=== PATIENT | female | born 1980 | race Caucasian/White ===

== ENCOUNTER 2016-10-28 08:17 | Emergency (ER) | payer SELFPAY | END 2016-10-28 09:34 | disposition home or self-care (01) | LOC: NAV ERS 08:17 | DX: K08.89 Other specified disorders of teeth and supporting structures (principal); F31.9 Bipolar disorder, unspecified; F41.9 Anxiety disorder, unspecified; F17.210 Nicotine dependence, cigarettes, uncomplicated; Z79.2 Long term (current) use of antibiotics; Z79.899 Other long term (current) drug therapy | CPT/HCPCS: 96372; J2270 ==

== ENCOUNTER 2017-03-01 20:30 | Emergency (ER) | payer SELFPAY | END 2017-03-01 21:26 | disposition home or self-care (01) | LOC: NAV ERS 20:30 | DX: J06.9 Acute upper respiratory infection, unspecified (principal); F41.9 Anxiety disorder, unspecified; F31.9 Bipolar disorder, unspecified; F17.210 Nicotine dependence, cigarettes, uncomplicated | CPT/HCPCS: 99283 ==

== ENCOUNTER 2017-03-02 08:37 | Emergency (ER) | payer SELFPAY ==
[2017-03-02] MEDS ORDERED: Ibuprofen 800 MG TAB ONE (09:00)
== END 2017-03-02 08:59 | disposition home or self-care (01) ==
LOC: NAV ERS 08:37
DX: S39.012A Strain of muscle, fascia and tendon of lower back, initial encounter (principal); I34.1 Nonrheumatic mitral (valve) prolapse; N80.9 Endometriosis, unspecified; F41.9 Anxiety disorder, unspecified; F31.9 Bipolar disorder, unspecified; F17.210 Nicotine dependence, cigarettes, uncomplicated; X58.XXXA Exposure to other specified factors, initial encounter
CPT/HCPCS: 99406

== ENCOUNTER 2017-03-16 18:57 | Emergency (ER) | payer SELFPAY ==
[2017-03-16] MEDS ORDERED: predniSONE 10 MG TAB ONE (19:48)
[2017-03-16] MEDS ORDERED: predniSONE 20 MG TAB ONE (19:48)
[2017-03-16 20:07] LABS: Pregnancy Test - Urine (BHCG) Negative (Negative); Pregu Control Background? CLEAR/WHITE (CLR/WHITE); Pregu Control Bar Appear? YES (CONTROL BAR); Specific Gravity 1.032 (1.002-1.036)
[2017-03-16] MEDS ORDERED: Azithromycin 250 MG TAB ONE (20:27)
--- NOTE | 2017-03-16 21:38 | RAD ---
EXAM: ONE VIEW CHEST 03/16/17 HISTORY: Cough. COMPARISON: 01/28/15. FINDINGS: Normal cardiac silhouette. Pulmonary vessels and hilum are normal. Costophrenic angles are clear. No consolidation or mass. No pneumothorax or osseous abnormalities. IMPRESSION: No acute cardiopulmonary process. POS: [facility]
== END 2017-03-16 20:31 | disposition home or self-care (01) ==
LOC: NAV ERS 18:57
DX: J40 Bronchitis, not specified as acute or chronic (principal); F41.9 Anxiety disorder, unspecified; F31.9 Bipolar disorder, unspecified; F17.210 Nicotine dependence, cigarettes, uncomplicated
CPT/HCPCS: 71046; 81025; 94640; J7506; J7512; J7620

== ENCOUNTER 2017-09-28 21:44 | Emergency (ER) | payer SELFPAY ==
[2017-09-28] MEDS ORDERED: Sodium Chloride 0.9% 1,000 ML ONE (22:06)
[2017-09-28] MEDS ORDERED: Acetaminophen 500 MG TAB ONE (22:06)
[2017-09-28] MEDS ORDERED: Ondansetron ODT 4 MG TAB ONE (22:06)
[2017-09-28] MEDS ORDERED: Ondansetron HCl/PF 4 MG/2 ML Vial ONE (22:08)
[2017-09-28 22:24] LABS: #Basophils 0.2 thou/uL (0.0-0.2); #Eosinphils 0.3 thou/uL (0.0-0.7); #Lymphocytes 5.2 thou/uL (1.20-3.40); #Monocytes 0.9 thou/uL (0.11-0.59); #Neutrophils 11.2 thou/uL (1.40-6.50); %Basophils 0.9 % (0.0-1.0); %Eosinophils 1.5 % (0.0-10.0); %Lymphocytes 29.3 % (21.0-51.0); %Monocytes 5.2 % (0.0-10.0); Hemoglobin 13.9 g/dL (12.0-16.0); Mean Corpuscular HGB CONC 32.4 g/dL (32.0-36.0); Mean Corpuscular Hemoglobin 28.7 pg (27.0-31.0); Mean Corpuscular Volume 88.6 fL (78.0-98.0); Mean Platelet Volume 6.8 fL (7.4-10.4); Platelet Count 397 thou/uL (130-400); RBC Distribution Width 11.3 % (11.5-14.5); Red Blood Cell (RBC) Count 4.82 mill/uL (4.20-5.40); White Blood Cell (WBC) Count 17.7 thou/uL (4.8-10.8)
[2017-09-28 22:44] LABS: ALT (SGPT) 22 U/L (8-55); AST (SGOT) 15 U/L (5-34); Albumin 4.2 g/dL (3.5-5.0); Alkaline Phosphatase 60 U/L (40-150); Anion Gap 16 mmol/L (10-20); BUN (Urea Nitrogen) 14 mg/dL (7.0-18.7); Bilirubin, Total 0.1 mg/dL (0.2-1.2); Calc. Creatinine Clearance 0 mL/min (70-130); Calcium 9.4 mg/dL (7.8-10.44); Carbon Dioxide 22 mmol/L (22-29); Chloride 105 mmol/L (98-107); Estimated GFR-MDRD Greater than 90; Globulin 2.8 g/dL (2.4-3.5); Glucose 113 mg/dL (70-105); Sodium 139 mmol/L (136-145)
[2017-09-28] MEDS ORDERED: Fentanyl 100 MCG/2 ML VIAL ONE (22:53)
[2017-09-28 22:54] LABS: Bilirubin Negative (Negative); Blood, Urine Small (Negative); Clarity Clear (Clear); Glucose, Urine (Dipstick) Negative (Negative); Leukocyte Trace (Negative); Nitrite Negative (Negative); Protein, Urine (Dipstick) Negative (Neg-Trace); Urobilinogen 0.2 mg/dL (0.2-1.0); pH, Urine 6.5 (5.0-9.0)
[2017-09-28 22:56] LABS: Pregnancy Test - Urine (BHCG) Negative (Negative)
[2017-09-28 22:58] LABS: Pregu Control Background? CLEAR/WHITE (CLR/WHITE); Pregu Control Bar Appear? YES (CONTROL BAR)
[2017-09-28 23:02] LABS: Bacteria/HPF Rare-Few HPF (None Seen); RBC/HPF 0-3 HPF (0-3); Squamous Epithelial 0-3 HPF (0-3)
[2017-09-28 23:03] LABS: Amphetamine Not Detected (NotDetected); Barbiturates Screen Not Detected (NotDetected); Benzodiazepine Screen Not Detected (NotDetected); Cocaine Metabolite Screen Not Detected (NotDetected); Medtox Control Line Valid? VALID (VALID); Methadone Not Detected (NotDetected); Methamphetamine Not Detected (NotDetected); Opiate Screen Not Detected (NotDetected); Oxycodone Screen Not Detected (NotDetected); Phencyclidine (PCP) Not Detected (NotDetected); THC/Cannabinoid Screen Not Detected (NotDetected); Tricyclic Screen Not Detected (NotDetected)
--- NOTE | 2017-09-28 23:42 | CT ---
NONCONTRAST CT ABDOMEN AND PELVIS: 09/28/17 HISTORY: Left sided back pain with nausea. COMPARISON: Contrasted CT abdomen and pelvis on 10/17/13. FINDINGS: There is minimal dependent bibasilar atelectasis. Stable sclerotic densities are seen in the left hemipelvis and involving the left proximal femur like ly related to bone islands. The liver, spleen, pancreas, bilateral adrenal glands and kidneys demonstrate a grossly normal nonenh anced CT appearance. No renal or ureteral calculi are seen bilaterally, and there is no hydronephrosi s. The urinary bladder is decompressed and not well evaluated. The uterus and adnexal structures demonst rate a normal nonenhanced CT appearance. Small amount of retained fecal material is seen throughout the colon. The appendix is not visualized. No free fluid, fluid collection, or lymphadenopathy is seen on this nonenhanced CT scan examination. IMPRESSION: 1. No acute findings seen on this nonenhanced CT scan abdomen and pelvis. 2. No renal or ureteral calculi are seen bilaterally, and there is no hydronephrosis. POS: [facility]
== END 2017-09-28 23:53 | disposition home or self-care (01) ==
LOC: NAV ERS 21:44
DX: N10 Acute pyelonephritis (principal); F41.9 Anxiety disorder, unspecified; F31.9 Bipolar disorder, unspecified; F17.210 Nicotine dependence, cigarettes, uncomplicated; Z71.6 Tobacco abuse counseling
CPT/HCPCS: 74176; 80053; 80306; 81003; 81015; 81025; 85025; 87077; 87086; 87186; 96361; 96374; 96375; 99406; J2405; J3010; J7050; Q0162

== ENCOUNTER 2017-12-27 21:36 | Emergency (ER) | payer SELFPAY ==
[2017-12-27] MEDS ORDERED: Ondansetron ODT 4 MG TAB ONE (21:47)
[2017-12-27 22:03] LABS: Bilirubin Negative (Negative); Blood, Urine Trace (Negative); Glucose, Urine (Dipstick) Negative (Negative); Leukocyte Negative (Negative); Nitrite Positive (Negative); Protein, Urine (Dipstick) Negative (Neg-Trace)
[2017-12-27 22:12] LABS: Bacteria/HPF 3+ HPF (None Seen); Clarity SL AHZY (Clear); Pregnancy Test - Urine (BHCG) Negative (Negative); RBC/HPF 0-3 HPF (0-3); Specific Gravity, Urine 1.024 (1.002-1.036); Squamous Epithelial 0-3 HPF (0-3); WBC/HPF 0-3 HPF (0-3)
[2017-12-27 22:13] LABS: Pregu Control Background? CLEAR/WHITE (CLR/WHITE); Pregu Control Bar Appear? YES (CONTROL BAR); Specific Gravity 1.024 (1.002-1.036)
[2017-12-27] MEDS ORDERED: Acetaminophen/Codeine 30-300mg Tablet ONE (22:26)
[2017-12-27] MEDS ORDERED: Cipro 250 MG TAB ONE (22:27)
== END 2017-12-27 22:40 | disposition home or self-care (01) ==
LOC: NAV ERS 21:36
DX: N39.0 Urinary tract infection, site not specified (principal); F17.210 Nicotine dependence, cigarettes, uncomplicated; F41.9 Anxiety disorder, unspecified; F31.9 Bipolar disorder, unspecified
CPT/HCPCS: 81003; 81015; 81025; 87077; 87086; 87186; 99283; Q0162

== ENCOUNTER 2018-02-18 16:38 | Emergency (ER) | payer SELFPAY ==
[2018-02-18] MEDS ORDERED: Ibuprofen 800 MG TAB ONE (17:04)
[2018-02-18] MEDS ORDERED: Cyclobenzaprine 10 MG TAB ONE (17:04)
== END 2018-02-18 17:22 | disposition home or self-care (01) ==
LOC: NAV ERS 16:38
DX: M62.830 Muscle spasm of back (principal); R55 Syncope and collapse; M54.2 Cervicalgia; F17.210 Nicotine dependence, cigarettes, uncomplicated; Z71.6 Tobacco abuse counseling
CPT/HCPCS: 93005; 99406

== ENCOUNTER 2018-08-19 19:33 | Emergency (ER) | payer BC, SELFPAY ==
[2018-08-19] MEDS ORDERED: Ketorolac Tromethamine 30 MG/ML VIAL ONE ×2 (19:46→19:49)
[2018-08-19] MEDS ORDERED: Ondansetron ODT 4 MG TAB ONE (19:46)
== END 2018-08-19 20:08 | disposition home or self-care (01) ==
LOC: NAV ERS 19:33
DX: J06.9 Acute upper respiratory infection, unspecified (principal); F17.210 Nicotine dependence, cigarettes, uncomplicated; Z71.6 Tobacco abuse counseling
CPT/HCPCS: 96372; 99406; J1885; Q0162

== ENCOUNTER 2018-10-03 21:37 | Emergency (ER) | payer SELFPAY ==
[2018-10-03] MEDS ORDERED: Acetaminophen/Codeine 30-300mg Tablet ONE (21:48)
== END 2018-10-03 22:06 | disposition home or self-care (01) ==
LOC: NAV ERS 21:37
DX: T63.461A Toxic effect of venom of wasps, accidental (unintentional), initial encounter (principal); F17.210 Nicotine dependence, cigarettes, uncomplicated
CPT/HCPCS: 99282

== ENCOUNTER → 2019-01-01 | Emergency (ER) | payer SELFPAY ==
[~2019-01-01] MED LIST: Acetaminophen 500 MG TAB ONE; Ondansetron ODT 4 MG TAB ONE
[2019-01-01 21:54] LABS: Bilirubin Negative (Negative); Blood, Urine Trace (Negative); Clarity Clear (Clear); Glucose, Urine (Dipstick) Negative (Negative); Leukocyte Negative (Negative); Nitrite Negative (Negative); Pregnancy Test - Urine (BHCG) Negative (Negative); Protein, Urine (Dipstick) Negative (Neg-Trace)
[2019-01-01 21:55] LABS: Pregu Control Background? CLEAR/WHITE (CLR/WHITE); Pregu Control Bar Appear? YES (CONTROL BAR)
[2019-01-01 21:56] LABS: RBC/HPF 0-3 HPF (0-3); WBC/HPF None Seen HPF (0-3)
[2019-01-01 21:57] LABS: Bacteria/HPF Rare-Few HPF (None Seen)
[2019-01-01 22:02] LABS: Amphetamine Not Detected (NotDetected); Barbiturates Screen Not Detected (NotDetected); Benzodiazepine Screen Not Detected (NotDetected); Cocaine Metabolite Screen Not Detected (NotDetected); Medtox Control Line Valid? VALID (VALID); Methadone Not Detected (NotDetected); Methamphetamine Not Detected (NotDetected); Opiate Screen Not Detected (NotDetected); Oxycodone Screen Not Detected (NotDetected); Phencyclidine (PCP) Not Detected (NotDetected); THC/Cannabinoid Screen Not Detected (NotDetected); Tricyclic Screen Not Detected (NotDetected)
== END ==
LOC: NAV ERS 21:10
DX: M54.5 Low back pain (principal); R51 Headache; F17.210 Nicotine dependence, cigarettes, uncomplicated; Z71.6 Tobacco abuse counseling
CPT/HCPCS: 80306; 81003; 81015; 81025; 99406; Q0162

== ENCOUNTER 2019-08-21 21:09 | Emergency (ER) | payer SELFPAY ==
[~2019-08-21 21:09] MED LIST changes: -Acetaminophen 500 MG TAB ONE; +Iopamidol 370 76% 100 ML VIAL ONE; -Ondansetron ODT 4 MG TAB ONE
[2019-08-21] MEDS ORDERED: Fentanyl 100 MCG/2 ML VIAL ONE (21:23)
[2019-08-21 21:41] LABS: #Basophils 0.1 thou/uL (0.0-0.2); #Eosinphils 0.2 thou/uL (0.0-0.7); #Lymphocytes 4.3 thou/uL (1.20-3.40); #Neutrophils 11.4 thou/uL (1.40-6.50); %Basophils 0.8 % (0.0-1.0); %Eosinophils 1.1 % (0.0-10.0); %Lymphocytes 25.1 % (21.0-51.0); %Monocytes 5.8 % (0.0-10.0); %Neutrophils 67.3 % (42.0-75.0); Hemoglobin 12.1 g/dL (12.0-16.0); Mean Corpuscular HGB CONC 31.7 g/dL (32.0-36.0); Mean Corpuscular Hemoglobin 29.6 pg (27.0-31.0); Mean Corpuscular Volume 93.2 fL (78.0-98.0); Mean Platelet Volume 6.7 fL (7.4-10.4); Platelet Count 387 thou/uL (130-400); RBC Distribution Width 11.3 % (11.5-14.5); Red Blood Cell (RBC) Count 4.09 mill/uL (4.20-5.40); White Blood Cell (WBC) Count 16.9 thou/uL (4.8-10.8)
[2019-08-21 21:58] LABS: ALT (SGPT) 19 U/L (8-55); AST (SGOT) 14 U/L (5-34); Albumin 3.9 g/dL (3.5-5.0); Alkaline Phosphatase 51 U/L (40-110); Anion Gap 12 mmol/L (10-20); BUN (Urea Nitrogen) 16 mg/dL (7.0-18.7); Bilirubin, Total 0.2 mg/dL (0.2-1.2); Calc. Creatinine Clearance 0 mL/min (70-130); Calcium 8.1 mg/dL (7.8-10.44); Carbon Dioxide 21 mmol/L (22-29); Chloride 109 mmol/L (98-107); Estimated GFR-MDRD Greater than 90; Globulin 2.4 g/dL (2.4-3.5); Glucose 114 mg/dL (70-105); Lipase 14 U/L (8-78); Potassium 3.9 mmol/L (3.5-5.1); Protein, Total 6.3 g/dL (6.0-8.3); Sodium 138 mmol/L (136-145)
[2019-08-21 22:00] LABS: Bilirubin Negative (Negative); Blood, Urine Negative (Negative); Glucose, Urine (Dipstick) Negative (Negative); Leukocyte Negative (Negative); Nitrite Negative (Negative); Protein, Urine (Dipstick) Negative (Neg-Trace)
[2019-08-21 22:01] LABS: Clarity SL HAZY (Clear)
[2019-08-21 22:03] LABS: Pregnancy Test - Urine (BHCG) Negative (Negative); Pregu Control Background? CLEAR/WHITE (CLR/WHITE); Pregu Control Bar Appear? YES (CONTROL BAR); Specific Gravity 1.025 (1.002-1.036)
[2019-08-21 22:08] LABS: Amphetamine Not Detected (NotDetected); Barbiturates Screen Not Detected (NotDetected); Benzodiazepine Screen Not Detected (NotDetected); Cocaine Metabolite Screen Not Detected (NotDetected); Medtox Control Line Valid? VALID (VALID); Methadone Not Detected (NotDetected); Methamphetamine Not Detected (NotDetected); Opiate Screen Not Detected (NotDetected); Oxycodone Screen Not Detected (NotDetected); Phencyclidine (PCP) Not Detected (NotDetected); Tricyclic Screen Not Detected (NotDetected)
[2019-08-21 22:09] LABS: THC/Cannabinoid Screen Not Detected (NotDetected)
--- NOTE | 2019-08-21 23:11 | CT ---
CT Abdomen Pelvis W Con HISTORY: Lower abdominal pain COMPARISON: CT Stone protocol of 09/28/2017 FINDINGS: There are dependent changes in the lung bases. No calcified gallstones are seen. No free air, free fl uid or lymphadenopathy seen in the abdomen or pelvis. The liver, spleen, pancreas, adrenal glands and left kidney are normal. A 7 mm low-density lesion in the right renal cortex is likely cyst. The small bowel loops are not abnormally dilated. Uterus and ovaries are present. No acute osseous ab normalities are seen. An abnormal appendix is not seen. IMPRESSION: No acute process.
== END 2019-08-21 23:28 | disposition home or self-care (01) ==
LOC: NAV ERS 21:09
DX: R10.30 Lower abdominal pain, unspecified (principal); R11.2 Nausea with vomiting, unspecified; Z71.6 Tobacco abuse counseling; I34.1 Nonrheumatic mitral (valve) prolapse; F17.210 Nicotine dependence, cigarettes, uncomplicated
CPT/HCPCS: 74177; 80053; 80306; 81003; 81025; 83605; 83690; 85025; 96374; 99406; J3010; Q9967

== ENCOUNTER 2020-03-26 01:40 | Emergency (ER) | payer OTHER, SELFPAY ==
[2020-03-26 02:07] LABS: #Basophils 0.1 thou/uL (0.0-0.2); #Eosinphils 0.1 thou/uL (0.0-0.7); #Lymphocytes 2.8 thou/uL (1.20-3.40); #Monocytes 0.6 thou/uL (0.11-0.59); #Neutrophils 2.5 thou/uL (1.40-6.50); %Basophils 1.2 % (0.0-1.0); %Eosinophils 1.3 % (0.0-10.0); %Lymphocytes 45.8 % (21.0-51.0); %Monocytes 9.8 % (0.0-10.0); %Neutrophils 41.9 % (42.0-75.0); Hemoglobin 13.5 g/dL (12.0-16.0); Mean Corpuscular HGB CONC 33.5 g/dL (32.0-36.0); Mean Corpuscular Hemoglobin 30.2 pg (27.0-31.0); Mean Corpuscular Volume 90.2 fL (78.0-98.0); Mean Platelet Volume 6.3 fL (7.4-10.4); Platelet Count 300 thou/uL (130-400); RBC Distribution Width 11.6 % (11.5-14.5); Red Blood Cell (RBC) Count 4.48 mill/uL (4.20-5.40)
[2020-03-26 02:09] LABS: BHCG - Serum Negative (NEGATIVE); Pregs Control Bar Appear? YES (CONTROL BAR)
[2020-03-26 02:23] LABS: ALT (SGPT) 19 U/L (8-55); AST (SGOT) 15 U/L (5-34); Albumin 3.8 g/dL (3.5-5.0); Alkaline Phosphatase 54 U/L (40-110); Anion Gap 14 mmol/L (10-20); BUN (Urea Nitrogen) 14 mg/dL (7.0-18.7); Bilirubin, Total 0.1 mg/dL (0.2-1.2); CK (CPK) 101 U/L (29-168); Calc. Creatinine Clearance 0 mL/min (70-130); Calcium 8.2 mg/dL (7.8-10.44); Carbon Dioxide 22 mmol/L (22-29); Chloride 107 mmol/L (98-107); Globulin 2.5 g/dL (2.4-3.5); Glucose 102 mg/dL (70-105); Lipase 27 U/L (8-78); Potassium 3.5 mmol/L (3.5-5.1); Protein, Total 6.3 g/dL (6.0-8.3); Sodium 139 mmol/L (136-145)
[2020-03-26] MEDS ORDERED: Fentanyl 100 MCG/2 ML VIAL ONE (02:45)
[2020-03-26 06:31] LABS: Troponin I Less than 0.010 ng/mL (< 0.028)
--- NOTE | 2020-03-26 07:39 | CT ---
PRELIMINARY REPORT/DIRECT RADIOLOGY/EMERGENCY AFTER HOURS PROCEDURE: EXAM:CTA Chest, Abdomen and Pelvis with Intravenous Contrast CLINICAL HISTORY:Patient is a 39-year-old female with no significant past medical history complaint o f chest pain that radiates to her back. Patient states that her chest pain woke her from her sleep just prior to arrival. 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 TECHNIQUE:Axial CTA images of the chest, abdomen and pelvis with intravenous contrast. Three-dimensio nal MIP/volume rendered reformations were performed. CONTRAST:With; ISOVUE 370 LT HAND COMPARISON:None provided. FINDINGS: VASCULATURE: AORTA There is no evidence for aneurysm or dissection of the thoracic or abdominal aorta. PULMONARY ARTERIES The examination is optimized for assessment of the aorta, rather than the pulmonar y arteries. No evidence of central or segmental pulmonary embolism is seen. CHEST: Lungs:The lungs appear clear. No mass or consolidation. Pleural spaces:No evidence of pneumothorax. No pleural effusion. Heart and mediastinum:No cardiomegaly. No significant pericardial effusion. ABDOMEN: LIVER Unremarkable. No mass. GALLBLADDER AND BILE DUCTS No calcified stone. No ductal dilation. PANCREAS Unremarkable. No ductal dilation. SPLEEN Unremarkable. ADRENAL Left adrenal nodule versus hyperplasia, correlate clinically or with MRI if warranted. KIDNEYS AND URETERS The kidneys enhance symmetrically. No hydronephrosis. No solid mass. STOMACH AND BOWEL Partially seen distal colon suboptimally distended, limiting evaluation. APPENDIX No CT evidence of appendicitis. PELVIS: URINARY BLADDER Unremarkable. REPRODUCTIVE Unremarkable as visualized. PERITONEUM No free fluid. No free air. LYMPH NODES No lymphadenopathy is evident. BONES AND SOFT TISSUES No acute osseous abnormality. The soft tissues are unremarkable. MISCELLANEOUS Lower pelvis partially excluded from the field of view. IMPRESSION: 1. No evidence of arterial dissection. 2. No evidence of pulmonary embolism. 3. Left adrenal nodule versus hyperplasia, correlate clinically or with MRI if warranted. ELECTRONICALLY SIGNED BY: Bony Powell MD Mar 26, 2020 3:08:[address] FINAL REPORT CT AORTIC DISSECTION PROTOCOL: History: Chest pain. Comparison: Abdomen and pelvis CT August 21, 2019. Findings: CT angiogram of the chest and abdomen performed after the intravenous administration of contrast. 3-D rendering provided. Lungs are clear. No pneumothorax. No effusion. No aortic dissection. No pericardial effusion. No hydronephrosis. Spleen and pancreas as well as the gallbladder and liver are all unremarkable. No free intraperitoneal gas or fluid. No acute osseous abnormality. IMPRESSION: No aortic dissection or other acute inflammatory process. Transcribed Date/Time: 03/26/2020 7:52 AM
[2020-03-26] MEDS ORDERED: Iopamidol 370 76% 100 ML VIAL ONE (09:00)
== END 2020-03-26 07:00 | disposition home or self-care (01) ==
LOC: NAV ERS 01:40
DX: R07.2 Precordial pain (principal); I34.1 Nonrheumatic mitral (valve) prolapse; F17.210 Nicotine dependence, cigarettes, uncomplicated
CPT/HCPCS: 71275; 74174; 80053; 82550; 83690; 84484; 84703; 85025; 93005; 94760; 96374; J3010; Q9967

== ENCOUNTER 2020-03-27 20:04 | Emergency (ER) | payer SELFPAY ==
[2020-03-27 21:13] LABS: BHCG - Serum Negative (NEGATIVE); Pregs Control Bar Appear? YES (CONTROL BAR)
[2020-03-27 21:17] LABS: Band 1 % (5-11); Eosinophils 3 % (0-10); Hemoglobin 14.5 g/dL (12.0-16.0); Lymphocytes 46 % (21-51); MDiff Complete? YES; Mean Corpuscular HGB CONC 32.9 g/dL (32.0-36.0); Mean Corpuscular Hemoglobin 29.8 pg (27.0-31.0); Mean Corpuscular Volume 90.4 fL (78.0-98.0); Mean Platelet Volume 6.6 fL (7.4-10.4); Monocytes 9 % (0-10); Neutrophil 41 % (42-75); Platelet Count 318 thou/uL (130-400); Platelet Morphology Comment Appears Adequate; RBC Distribution Width 11.3 % (11.5-14.5); RBC Morphology Normal; Red Blood Cell (RBC) Count 4.87 mill/uL (4.20-5.40); White Blood Cell (WBC) Count 7.3 thou/uL (4.8-10.8)
--- NOTE | 2020-03-27 21:20 | RAD ---
2 view chest: [03/27/2020] Comparison:03/16/2017 HISTORY: Chest pain FINDINGS: Heart and mediastinal contours are grossly unremarkable. No pneumothorax or pleural fluid. No focal consolidation or alveolar edema. IMPRESSION: No acute findings.
[2020-03-27 21:22] LABS: ALT (SGPT) 21 U/L (8-55); AST (SGOT) 14 U/L (5-34); Albumin 3.8 g/dL (3.5-5.0); Alkaline Phosphatase 57 U/L (40-110); Anion Gap 16 mmol/L (10-20); BUN (Urea Nitrogen) 11 mg/dL (7.0-18.7); Bilirubin, Total 0.1 mg/dL (0.2-1.2); Calc. Creatinine Clearance 0 mL/min (70-130); Calcium 8.6 mg/dL (7.8-10.44); Carbon Dioxide 22 mmol/L (22-29); Chloride 106 mmol/L (98-107); Globulin 2.7 g/dL (2.4-3.5); Glucose 109 mg/dL (70-105); Lipase 30 U/L (8-78); Protein, Total 6.5 g/dL (6.0-8.3); Sodium 140 mmol/L (136-145)
[2020-03-28 14:08] LABS: SARS-CoV-2 MS2 Positive; SARS-CoV-2 N Gene Positive; SARS-CoV-2 S Gene Positive; SARS-CoV-2 by NAA DETECTED (NotDetected); SARS-CoV-2 orf1ab Positive
== END 2020-03-27 22:51 | disposition home or self-care (01) ==
LOC: NAV ERS 20:04
DX: U07.1 COVID-19 (principal); F17.210 Nicotine dependence, cigarettes, uncomplicated
CPT/HCPCS: 71046; 80053; 83605; 83690; 84484; 84703; 85025; 85379; 87635; 87804; 93005; U0003; U0005